=== PATIENT | male | born 1950 | race Caucasian/White ===

== ENCOUNTER → 2021-01-24 | Outpatient (CLI) | payer MEDICARE ==
[~2021-01-24] MED LIST: GADOTERATE 10 MMOL/20ML SYR ONE
== END | disposition home or self-care (01) ==
LOC: RAD 12:21
PROVIDERS: ATTEND Psychiatry & Neurology Neurology
DX: G31.89 Other specified degenerative diseases of nervous system (principal); H47.011 Ischemic optic neuropathy, right eye
CPT/HCPCS: 70543; A9575